=== PATIENT | male | born 1965 | race Two or more races ===

== ENCOUNTER 2021-08-23 09:55 | Inpatient (IN) | payer OTHER ==
[~2021-08-23] VITALS: Ht 172.7 cm; Wt 113.4 kg
[2021-08-26] MEDS ORDERED: LIPITOR40 MG PO (15:09)
[2021-08-26] MEDS ORDERED: ZESTRIL10 M1 PO (15:10)
[2021-08-26] MEDS ORDERED: ISOSORBIDE DINI20 MG PO (15:10)
[2021-08-26] MEDS ORDERED: ST. JOSEPH ASPI81 M2 PO (15:11)
[2021-08-27] MEDS ORDERED: ISOSORBIDE DINI30 MG PO (13:43)
[2021-08-27] MEDS ORDERED: ZESTRIL10 M1 PO (13:43)
[2021-08-27] MEDS ORDERED: LIPITOR20 MG PO (13:43)
[2021-08-27] MEDS ORDERED: PANTOPRAZOLE SO40 MG PO (13:43)
== END 2021-08-26 17:43 | disposition home or self-care (01) | DRG 313 ==
LOC: ER 09:55 → MEDI 18:23
PROVIDERS: ADMIT Internal Medicine; ATTEND Internal Medicine
PROC: 4A12X4Z Monitoring of Cardiac Electrical Activity, External Approach (ICD-10-PCS; principal; 2021-08-23)
PROC: B24BZZZ Ultrasonography of Heart with Aorta (ICD-10-PCS; 2021-08-23)
PROC: 4A02XM4 Measurement of Cardiac Total Activity, External Approach (ICD-10-PCS; 2021-08-24)
PROC: 3E073KZ Introduction of Other Diagnostic Substance into Coronary Artery, Percutaneous Approach (ICD-10-PCS; 2021-08-24)
DX: R07.89 Other chest pain (principal); I10 Essential (primary) hypertension; E66.9 Obesity, unspecified; Z68.30 Body mass index [BMI] 30.0-30.9, adult